=== PATIENT | female | born 1985 | race Caucasian/White ===

== ENCOUNTER → 2018-02-24 | Outpatient (CLI) | payer BC | LOC: SUN.DIA 08:59 | DX: O24.419 Gestational diabetes mellitus in pregnancy, unspecified control (principal); Z3A.31 31 weeks gestation of pregnancy; Z71.3 Dietary counseling and surveillance | CPT/HCPCS: G0108 ==

== ENCOUNTER → 2018-03-08 | Outpatient (CLI) | payer BC | LOC: SUN.DIA 09:56 | DX: O24.419 Gestational diabetes mellitus in pregnancy, unspecified control (principal); Z3A.33 33 weeks gestation of pregnancy | CPT/HCPCS: G0108 ==

== ENCOUNTER → 2018-04-03 | Outpatient (CLI) | payer BC | LOC: SUN.DIA 15:28 | DX: O24.419 Gestational diabetes mellitus in pregnancy, unspecified control (principal); Z3A.36 36 weeks gestation of pregnancy | CPT/HCPCS: G0108 ==

== ENCOUNTER 2018-04-22 16:18 | Inpatient (IN) | payer BC ==
[2018-04-22] VITALS (17 sets, daily range): BP systolic 112–140; BP diastolic 73–85; PULSE 67–100; TEMP 97.3–98.1
[~2018-04-22] VITALS: Ht 175.3 cm; Wt 87.3 kg
[2018-04-22] MEDS ORDERED: CALCIUM CARBON650 M2 (16:48)
[2018-04-22] MEDS ORDERED: PRENATAL MVI (16:48)
[2018-04-22] MEDS ORDERED: OMEGA-31 SGL PO (16:49)
[2018-04-22] MEDS ORDERED: VALTREX 50500 MG/TAB PO (16:49)
[2018-04-22 18:03] LABS: BASO % 0.3 % (0.0-2.0); HEMATOCRIT 38.4 % (37.0-47.0); HEMOGLOBIN 13.3 g/dl (12.5-16.0); LYMPH # 1.3 (1.2-3.4); LYMPH % 11.8 % (20.0-51.0); MEAN CELL VOLUME 88 fl (80.0-100.0); MEAN CORPUSCULAR HEMOGLOBIN 30 pg (27.0-31.0); MEAN CORPUSCULAR HGB CONC 35 g/dl (33.0-37.0); MEAN PLATELET VOLUME 10.2 fl (7.4-10.4); MONO # 0.6 (0.1-0.6); MONO % 5.4 % (1.7-9.3); PLATELET COUNT 248 K/mm3 (130-400); RED BLOOD COUNT 4.37 M/mm3 (4.10-5.30); REDCELL DISTRIBUTION WIDTH-CV 12.5 % (11.5-14.5)
[2018-04-23] VITALS (38 sets, daily range): BP systolic 102–139; BP diastolic 60–93; PULSE 62–137; TEMP 97.5–98.8
[2018-04-24 07:05] VITALS: BP 104/68; PULSE 92; TEMP 97.9
[2018-04-24] MEDS ORDERED: IBU800 M1 PO (11:47)
[2018-04-24] MEDS ORDERED: PERCOCET 325 MG1 TA2 PO (11:48)
[2018-04-24 16:15] VITALS: BP 117/68; PULSE 88; TEMP 98.3
[2018-04-24 20:39] VITALS: BP 121/77; PULSE 74; TEMP 98.2
[2018-04-25 06:30] VITALS: BP 129/76; PULSE 94; TEMP 99.1
== END 2018-04-25 13:25 | disposition home or self-care (01) | DRG 774 ==
LOC: LDRO 16:18 → LDR 16:30 → OB 04-23 09:40
PROVIDERS: Student in an Organized Health Care Education/Training Program
PROC: 10E0XZZ Delivery of Products of Conception, External Approach (ICD-10-PCS; principal; 2018-04-23)
PROC: 0HQ9XZZ Repair Perineum Skin, External Approach (ICD-10-PCS; 2018-04-23)
PROC: 0UQMXZZ Repair Vulva, External Approach (ICD-10-PCS; 2018-04-23)
DX: O24.420 Gestational diabetes mellitus in childbirth, diet controlled (principal); O72.1 Other immediate postpartum hemorrhage; Z3A.38 38 weeks gestation of pregnancy; Z37.0 Single live birth; O70.0 First degree perineal laceration during delivery
CPT/HCPCS: J2210; J2405; J2590; J7120

== ENCOUNTER → 2018-04-28 | Outpatient (CLI) | payer BC ==
[~2018-04-28] MED LIST: CALCIUM CARBON650 M2; IBU800 M1 PO; OMEGA-31 SGL PO; PERCOCET 325 MG1 TA2 PO; PRENATAL MVI; VALTREX 50500 MG/TAB PO
== END ==
LOC: LAC 13:11
DX: Z39.1 Encounter for care and examination of lactating mother (principal); Z71.89 Other specified counseling

== ENCOUNTER → 2018-05-08 | Outpatient (CLI) | payer BC | LOC: LAC 13:09 | DX: Z39.1 Encounter for care and examination of lactating mother (principal); Z71.89 Other specified counseling ==

== ENCOUNTER → 2018-05-15 | Outpatient (CLI) | payer BC | LOC: LAC 13:15 | DX: Z39.1 Encounter for care and examination of lactating mother (principal); Z71.89 Other specified counseling ==

== ENCOUNTER → 2018-05-23 | Outpatient (CLI) | payer BC | LOC: LAC 11:10 | DX: Z39.1 Encounter for care and examination of lactating mother (principal); Z71.89 Other specified counseling ==

== ENCOUNTER → 2018-05-30 | Outpatient (CLI) | payer BC | LOC: OLC 10:57 | DX: Z39.1 Encounter for care and examination of lactating mother (principal); Z71.89 Other specified counseling ==

== ENCOUNTER → 2022-02-15 | Outpatient (CLI) | payer BC | LOC: DIA.ED 10:07 | DX: O24.419 Gestational diabetes mellitus in pregnancy, unspecified control (principal) | CPT/HCPCS: G0108 ==

== ENCOUNTER 2022-04-21 15:39 | Inpatient (IN) | payer BC ==
[~2022-04-21] VITALS: Ht 175.3 cm; Wt 92.6 kg
[2022-04-21] VITALS (13 sets, daily range): BP systolic 121–142; BP diastolic 65–96; PULSE 60–92; TEMP 98.1–98.3
--- NOTE | 2022-04-21 15:50 | NUR ---
1550 PT ARRIVED TO UNIT IN WHEELCHAIR WITH SUPPORT PERSON. PT REPORTS QTX Q5-10, NO LOF, POSITIVE MOVEMENT. SVE AT THIS TIME /. DR. KRAMER CALLED AND GAVE VORB TO ADMIT.
[2022-04-21 16:44] LABS: BASO % 0.3 % (0.0-2.0); GRAN # 9.9 K/mm3 (1.4-6.5); GRAN % 84.4 % (42.2-75.2); HEMOGLOBIN 11.8 g/dl (12.5-16.0); LYMPH # 1.1 K/mm3 (1.2-3.4); LYMPH % 9.5 % (20.0-51.0); MEAN CELL VOLUME 82 fl (80.0-100.0); MEAN CORPUSCULAR HEMOGLOBIN 28 pg (27-31); MEAN CORPUSCULAR HGB CONC 34 g/dl (33.0-37.0); MEAN PLATELET VOLUME 10.1 fl (7.4-10.4); MONO # 0.7 K/mm3 (0.1-0.6); MONO % 5.5 % (1.7-9.3); PLATELET COUNT 278 K/mm3 (130-400); RED BLOOD COUNT 4.23 M/mm3 (4.10-5.30); REDCELL DISTRIBUTION WIDTH-CV 12.5 % (11.5-14.5)
[2022-04-21 16:45] LABS: HEMATOCRIT 34.8 % (37.0-47.0)
--- NOTE | 2022-04-21 17:05 | NUR ---
1705 KODY DOCUMENTATION SPEC AT BEDSIDE. PT SITTING UP. LR BOLUS INFUSING PER PROTOCOL. BP CUFF AND PULSE OX ON. 1711 SINGLE SHOT DONE AT THIS TIME PER KODY. 1713 TEST DOSE DONE AT THIS TIME PER KODY. 1714 PT RETURNED COMFORTABLY TO BED. VITAL SIGNS STABLE. EFM TRACING CAT 1. PT TOLERATED WELL.
--- NOTE | 2022-04-21 18:50 | NUR ---
DR KRAMER HERE SVE COMPLETE, PT SET UP FOR DELIVERY. PERINEUM PREPPED GREGG GOTTI. NURSERY STAFF ALBERTA PADILLA RN HERE. VAG DELIVERY FEMALE . BABY PLACED ON MOMS CHEST, CORD WS CLAMPED AND CUT, BABY PLACED SKIN TO SKIN. VAG REPAIR DONE.
[2022-04-22 07:58] VITALS: BP 114/62; PULSE 74; TEMP 98.1
--- NOTE | 2022-04-22 09:34 | NUR ---
Initial visit; Patient thanked [facility] Physiotherapist for looking in on her and her daughter. [employer] Physiotherapist offered congratulations and God's blessings for the of her daughter and for coming to our hospital. Patient all smiles enjoying the moment.
[2022-04-22] MEDS ORDERED: MOTRIN 800800 MG/TAB PO (15:31)
[2022-04-22 16:10] VITALS: BP 112/68; PULSE 72; TEMP 98.4
[2022-04-22 20:08] VITALS: BP 120/71; PULSE 76; TEMP 97.7
== END 2022-04-22 21:40 | disposition home or self-care (01) | DRG 807 ==
LOC: LDRO 15:39 → LDR 16:12 → OB 16:12
PROVIDERS: Obstetrics & Gynecology; ADMIT Student in an Organized Health Care Education/Training Program
PROC: 10E0XZZ Delivery of Products of Conception, External Approach (ICD-10-PCS; principal; 2022-04-21)
PROC: 0KQM0ZZ Repair Perineum Muscle, Open Approach (ICD-10-PCS; 2022-04-21)
PROC: 0UQMXZZ Repair Vulva, External Approach (ICD-10-PCS; 2022-04-21)
PROC: 0UQKXZZ Repair Hymen, External Approach (ICD-10-PCS; 2022-04-21)
DX: O24.420 Gestational diabetes mellitus in childbirth, diet controlled (principal); Z37.0 Single live birth; Z3A.39 39 weeks gestation of pregnancy; O70.1 Second degree perineal laceration during delivery; O99.344 Other mental disorders complicating childbirth; F41.9 Anxiety disorder, unspecified; J30.2 Other seasonal allergic rhinitis; O99.52 Diseases of the respiratory system complicating childbirth; Z88.8 Allergy status to other drugs, medicaments and biological substances
CPT/HCPCS: J2590; J7120

== ENCOUNTER → 2022-05-11 | Outpatient (CLI) | payer BC ==
[~2022-05-11] MED LIST changes: +MOTRIN 800800 MG/TAB PO
--- NOTE | 2022-05-11 14:05 | NUR ---
Pt, Farzaneh Wu, presents to walk-in clinic with 3 week old baby girl, Arabella Wu, for a evaluation and weight check. Arabella was born on [birth year] and weighed 8#3.oz (3730 gms). Pt reports she was seen by Dr Taveras on 05/04/22 and weighd 8#1oz. Today Arabella weighs 8# 14.2oz (4030 gms). She nurses without difficulty and has a weight gain of 3.3oz (94 gms) after feeding. General BF and pumping questions answered. POC: Continue BF ad svitlana. F/U: As scheduled with Dr. Taveras and walk-in clinic as desired.
== END ==
LOC: LDRO 13:14
DX: Z39.1 Encounter for care and examination of lactating mother (principal); Z71.89 Other specified counseling